=== PATIENT | male | born 1995 | race Caucasian/White ===

== ENCOUNTER 2017-05-03 03:10 | Emergency (ER) | payer OTHER ==
[~2017-05-03] VITALS: Ht 172.7 cm; Wt 74.1 kg
[2017-05-03 03:20] VITALS: TEMP 36.7; Ht 172.7 cm; Wt 74.1 kg
[2017-05-03] MEDS ORDERED: ESCI10TA17 PO (03:31)
--- NOTE | 2017-05-03 03:37 | EMERGENCY ROOM VISIT NOTE ---
ED Visit Note First contact with patient: 03:36 CHIEF COMPLAINT: Scalp laceration HISTORY OF PRESENT ILLNESS: This 21-year-old male patient presents emergency department with his friend after striking the head on a tree branch earlier today. There was no loss of consciousness, blurry vision, nausea, vomiting, or unusual behavior afterwards. The patient rates the pain as throbbing and 4/10. The patient denies neck pain. The bleeding has stopped. The patient's tetanus shot is up to date. REVIEW OF SYSTEMS: A 6 system review of systems was completed with positives and pertinent negatives listed in the HPI. ALLERGIES: Reviewed in the chart MEDICATIONS: Reviewed in the chart PMH: No significant past medical or surgical history. SOCIAL HISTORY: Lives at home. College student from [employer] visiting for the weekend. PHYSICAL EXAM: Vital Signs: Reviewed Nurse's notes, vital signs stable. GENERAL : Pleasant and cooperative, in no acute distress, well-developed, well- nourished. NEURO: Patient was alert and oriented to person place and time. Sensory and motor functions grossly intact. No focal neurologic deficits. Normal sensation to light and sharp touch. EYES: PERRLA. EOMI. EARS: No hemotympanum. No comer sign or mastoid tenderness. SKIN: There is a 3 cm laceration on the occipital aspect of the scalp whose edges are gaping apart. There is minimal bleeding. The wound is clean and there are no deep structures present. NECK: Supple, cervical spine nontender to palpation. EMERGENCY DEPARTMENT COURSE: I examined the patient. Patient is alert and oriented with a normal neuro exam, though I do suspect he may have been drinking alcohol this evening. He is alert and appropriate, so I did not feel an alcohol level was necessary. A head CT was performed due to the suspicion of etOH and laceration, this is negative for any internal trauma. Verbal consent was obtained to perform the procedure. Using sterile technique the wound was cleaned with Betadine. The area was sterilely draped. 3 ml of 1% buffered lidocaine was used to anesthetize the patient's scalp. Once the patient was numb, the wound was copiously irrigated under pressure with sterile saline. The wound was explored and there were no deep structures present. The laceration was repaired using 8 megan with the wound edges being well approximated. The patient tolerated the procedure well. The bleeding stopped. The area was cleaned with sterile saline and dressed with bacitracin ointment. The patient was discharged home in good condition with a sober friend. Current/Historical Medications Scheduled Escitalopram (Lexapro), 10 MG PO DAILY Allergies Coded Allergies: Amoxicillin (Verified Allergy, Intermediate, HIVES, 05/03/17) Vital Signs Date Time Temp Pulse Resp B/P (MAP) Pulse Ox O2 Delivery O2 Flow Rate FiO2 05/03/17 08:05 71 16 130/71 100 Room Air 05/03/17 05:22 78 18 125/71 96 Room Air 05/03/17 03:20 36.7 95 18 132/84 98 Room Air Medications Administered Medications (Trade) Dose Ordered Sig/Anupam Route Start Time Stop Time Status Last Admin Dose Admin Tetracaine/ Epinephrine/ Lidocaine (L.e.t. Gel 4%/ 1:100/0.5%) 1 ea UD STAT EXT 05/03/17 03:44 05/03/17 03:45 DC 05/03/17 03:44 1 EA Acetaminophen (Tylenol Tab) 650 mg STK-MED ONCE .ROUTE 05/03/17 06:40 05/03/17 06:41 DC 05/03/17 06:40 650 MG Departure Information Impression Primary Impression: Laceration of scalp Dispostion Home / Self-Care Condition GOOD Referrals No Doctor, Assigned (PCP) Patient Instructions ED Laceration Scalp St[facility] Stap, [facility] Additional Instructions You have received 8 megan on your scalp. These megan are NOT dissolvable and WILL need to be removed by a health care provider in 7-10 days. You can return to the Emergency Department or contact your Primary Care Provider to have these megan removed. Proper wound care is essential for adequate wound healing and infection prevention. You can shower and clean the wound with soap and water. Do scour over the wound, pat dry with a towel. Do not submerse the wound until the megan have been removed. You can use an antibiotic ointment with a dressing over the wound for the next 3-4 days. After this time you may leave the wound dry and open to the air. If crust develops over the wound you can use a Q-tip to apply a 1:1 peroxide:water solution to clean the wound. Look for signs of infection of the wound including: increased pain, swelling, foul discharge, streaking, or increased temperature. If any of these are noticed you should return to the Emergency Department for further assessment and treatment. As with any laceration you may have received nerve damage to the surrounding tissues. This damage may or may not be permanent. For pain control, you can use the following [id number] medicines (if >12 yo): - Regular strength (325mg/tab) Tylenol (acetaminophen) 2 tabs every 4-6 hours as needed. Do not exceed 10 tablets in a 24 hour period. Avoid taking more than 3000 mg of Tylenol per day. This includes any other sources of acetaminophen you may take on a regular basis. - Regular strength (200 mg/tab) Advil (ibuprofen) 1-2 tabs every 4-6 hours as needed. Do not exceed a dose of 2400 mg per day. You most likely have a mild concussion. It is important to observe both physical and cognitive rest while recovering from a concussion. Physical rest includes no significant physical activity or exertion, heavy lifting over 10 pounds, and increasing sleep and nap times throughout the day as needed. Cognitive rest includes taking breaks from prolonged screen time including TV, tablets, phone, or prolonged periods of talking on the telephone or reading. You should relax in a quiet, dark place for the rest of the day. Avoid any possible triggers including: cigarette smoke, caffeine, nicotine, chocolate, wine, beer, loud noises or music, or bright lights. Follow-up with your PCP in the next few days to be rechecked. Please return to the ER for any worsening symptoms, including severe worsening headache, persistent vomiting, vision changes, confusion, numbness or weakness on one side of the body, balance issues or difficulty walking, or any other concerns. Problem Qualifiers Primary Impression: Laceration of scalp Encounter type: initial encounter Qualified Codes: S01.01XA - Laceration without foreign body of scalp, initial encounter
[2017-05-03] MEDS ORDERED: LIDOCAINE/EPINEPH/TETRACAINE 1 EA SYR EXT STA (03:44)
[2017-05-03] MEDS ORDERED: ACETAMINOPHEN 325 MG TAB ONE (06:40)
--- NOTE | 2017-05-03 07:54 | DIAGNOSTIC IMAGING REPORT ---
CT SCAN OF THE BRAIN WITHOUT IV CONTRAST CLINICAL HISTORY: Head injury. Intoxication. Trauma. COMPARISON STUDY: No priors. TECHNIQUE: Unenhanced axial CT scan of the brain is performed from the vertex to the skull base. A dose lowering technique was utilized adhering to the principles of ALARA. CT DOSE: 537.48 mGy.cm FINDINGS: Brain parenchyma: The brain parenchyma is normal in appearance. There is no hemorrhage, mass effect, or evidence of acute territorial ischemia by CT criteria. Gamble-white matter is preserved. No extra-axial fluid collection is seen. Ventricles, sulci, cisterns: Normal in configuration. Intracranial vasculature: The visualized intracranial vasculature at the skull base is normal in appearance. Calvarium: There is no depressed calvarial fracture. Soft tissues: There is minimal frontal scalp contusion/laceration. Sinuses and mastoids: The visualized paranasal sinuses are clear. The mastoid air cells are well pneumatized. Orbits: The bony orbits are grossly intact. IMPRESSION: No acute intracranial abnormality. Electronically signed by: Darrion Gomez M.D. 05/03/2017 7:53 AM Dictated Date/Time: 05/03/2017 7:51 AM
[2017-05-03 08:05] VITALS: BP 130/71; PULSE 71; O2SAT 100
== END 2017-05-03 08:15 | disposition home or self-care (01) ==
LOC: C.EDB 03:12 → C.EDC 08:15
DX: S01.01XA Laceration without foreign body of scalp, initial encounter (principal); W19.XXXA Unspecified fall, initial encounter